=== PATIENT | female | born 1980 | race Caucasian/White ===

== ENCOUNTER 2018-08-19 19:00 | Emergency (ER) | payer BC ==
--- NOTE | 2018-08-19 19:46 | PDOC ---
History of Present Illness - General Chief Complaint: Syncope/Near Syncope Stated Complaint: SYNCOPE Time Seen by Provider: 08/19/18 19:25 History Source: Patient Exam Limitations: No Limitations - History of Present Illness Initial Comments: 08/19/18 20:43 38 yo F with no past medical history presents to the emergency department s/p syncopal event today while at urgent care at approximately 6 pm. Per the patient , she states she was at for evaluation of her N/V/D with concurrent weakness and dehydration. While walking out of the bathroom, she felt weak, had a witnessed LOC event without head trauma, awoke "20 seconds later" while laying down. Antecedent to the event, the patient denies the following symptoms: fever , chills, visual changes, lightheadedness, chest pain palpitations, SOB, and ears/nose/throat pain. Currently, the patient's sole symptomatic complaint is dehydration. Denies the following: fever, chills, abdominal pain, SOB, chest pain, dysuria, hematuria, diarrhea, hematuria, hematochezia, and leg pain/ swelling. No hx of recent travels, hx of PE/DVT, and blood clotting issues. Shx: None Allergies: NKDA Social: Denies tobacco, alcohol, and substance abuse. Past History - Past Medical History Allergies/Adverse Reactions: Allergies Allergy/AdvReac Type Severity Reaction Status Date / Time No Known Allergies Allergy Verified 08/19/18 21:13 Home Medications: Ambulatory Orders NK [No Known Home Medication] 08/19/18 Review of Systems - Review of Systems Able to Perform ROS?: Yes Is the patient limited Cymro proficient: No Constitutional: No: Chills, Diaphoresis, Fever HEENTM: No: Eye Pain, Ear Pain, Nose Pain, Throat Pain, Mouth Pain Respiratory: No: Cough, Shortness of Breath Cardiac (ROS): Yes: Syncope. No: Chest Pain, Lightheadedness, Palpitations, Chest Tightness ABD/GI: Yes: Nausea. No: Constipated, Diarrhea, Rectal Bleeding, Vomiting, Tarry Stools : No: Burning, Dysuria, Hematuria Musculoskeletal: No: Back Pain, Joint Pain, Neck Pain Integumentary: No: Bruising, Erythema, Rash Neurological: No: Headache, Numbness, Tingling, Tremors, Dizziness Psychiatric: No: Change in Appetite Endocrine: No: Unexplained Weight Gain Hematologic/Lymphatic: No: Anemia *Physical Exam - Physical Exam General Appearance: Yes: Nourished, Appropriately Dressed. No: Apparent Distress, Intoxicated HEENT: positive: EOMI, BRENDA, Normal Voice, Symmetrical, Pharynx Normal, Hearing Grossly Normal, Other (atrumatic head). negative: Pale Conjunctivae, Scleral Icterus (R), Scleral Icterus (L), Muffled/Hoarse voice, Pharyngeal Erythema, Tonsillar Exudate, Tonsillar Erythema, Sinus Tenderness, Excessive drooling Neck: positive: Trachea midline, Supple. negative: Tender, Lymphadenopathy (R) , Lymphadenopathy (L), Tender lateral, Tender midline Respiratory/Chest: positive: Lungs Clear, Normal Breath Sounds. negative: Chest Tender, Respiratory Distress, Accessory Muscle Use, Crackles, Rales, Rhonchi, Stridor, Wheezing, Hyperresonant Cardiovascular: positive: Regular Rhythm, Regular Rate, S1, S2. negative: Systolic Murmur Gastrointestinal/Abdominal: positive: Normal Bowel Sounds, Flat, Soft. negative : Tender, Guarding, Rebound, Tenderness Lymphatic: negative: Adenopathy Musculoskeletal: positive: Normal Inspection. negative: CVA Tenderness, Vertebral Tenderness Extremity: positive: Normal Capillary Refill, Normal Inspection, Normal Range of Motion. negative: Tender, Swelling, Calf Tenderness Integumentary: positive: Normal Color, Dry, Warm. 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 negative: Facial Droop, Sensory Deficit ED Treatment Course - LABORATORY CBC & Chemistry Diagram: 08/19/18 20:55 08/19/18 20:55 Medical Decision Making - Medical Decision Making 38 yo F with no past medical history presents to the emergency department s/p syncopal event today while at urgent care at approximately 6 pm. Initial vitals: Initial Vital Signs Temp Pulse Resp BP Pulse Ox 98.7 F 87 18 105/74 100 08/19/18 19:00 08/19/18 19:00 08/19/18 19:00 08/19/18 19:00 08/19/18 19:00 Work up: ddx: syncope (etiology infectious vs metabolic vs cardiogenic vs electrolyte disturbance vs hypovolemia) Laboratory Tests 08/19/18 08/19/18 08/19/18 20:46 20:55 20:55 WBC 9.1 RBC 4.18 Hgb 13.4 Hct 38.2 MCV 91.5 MCH 32.0 MCHC 35.0 RDW 12.7 Plt Count 169 MPV 8.0 Absolute Neuts (auto) 8.1 H Neutrophils % 88.4 H Lymphocytes % 3.7 L Monocytes % 6.2 Eosinophils % 1.5 Basophils % 0.2 Nucleated RBC % 0 Sodium 138 Potassium 3.8 Chloride 107 Carbon Dioxide 23 Anion Gap 8 BUN 11 Creatinine 0.9 Creat Clearance w eGFR > 60 Random Glucose 88 Calcium 8.1 L Total Bilirubin 0.7 AST 16 ALT 30 Alkaline Phosphatase 62 Creatine Kinase 82 Troponin I < 0.02 Total Protein 6.4 Albumin 3.4 Urine Color Straw Urine Appearance Clear Urine pH 5.0 Ur Specific Taylor 1.008 L Urine Protein Negative Urine Glucose (UA) Negative Urine Ketones Negative Urine Blood Negative Urine Nitrite Negative Urine Bilirubin Negative Urine Urobilinogen Negative Ur Leukocyte Esterase Negative Urine HCG, Qual Negative UA was negative. urine was negative. labs within normal limits. troponin negative for elevation. EKG shows NSR without ST elevations or depressions. after receiving 2 L of IVF, zofran, and acetaminophen with significant improvement in symptoms. she was given return precautions and stated she will follow up with her PMD within 1 week after discharge. Dispo: Discharge *DC/Admit/Observation/Transfer Diagnosis at time of Disposition: Syncope Qualifiers: Syncope type: unspecified Qualified Code(s): R55 - Syncope and collapse - Discharge Dispostion Disposition: HOME Decision to Admit order: No - Referrals Referrals: Jesus Vega [Primary Care Provider] - - Patient Instructions Printed Discharge Instructions: DI for Syncope in Adults (Fainting) Additional Instructions: you were seen in the emergency department for the evaluation of your syncope. your labs were within normal limits. please follow up with your primary medical doctor within 1 week after discharge for follow up care and management. please return to the emergency department if you have worsening symptoms or new concerning symptoms such as fever, loss of consciousness, palpitations, and chest pain. thank you. we may call you with positive results for your urine analysis. - Post Discharge Activity Forms/Work/School Notes: Back to Work
[2018-08-19] MEDS ORDERED: ONDANSETRON 4 MG/2 ML VIAL IVPUSH ONE (20:40)
[2018-08-19] MEDS ORDERED: SODIUM CHLORIDE 1,000 ML IV STA (20:40)
[2018-08-19] MEDS ORDERED: ACETAMINOPHEN 1000 MG/100 ML VIAL (NON FORMULARY) IVPB ONE (20:40)
--- NOTE | 2018-08-19 20:40 | PDOC ---
Attending Attestation - HPI HPI: 08/19/18 20:41 38 YOF with no significant past medical history, who presents to the ED s/p syncope. Patient was seen at urgent care earlier today for nausea, vomiting, and diarrhea at which time she had an episode of syncope lasting between 20sec- 5min. NKDA - Physicial Exam PE: 08/19/18 20:46 GENERAL: Well-appearing, well-nourished. No apparent distress. HEENT: Normocephalic, atraumatic. PERRL, EOM intact. CARDIOVASCULAR: Normal S1, S2. Regular rate and rhythm. PULMONARY: Clear to auscultation bilaterally. ABDOMEN: Soft, non-distended. No rebound or guarding. EXTREMITIES: Normal ROM in all four extremities. No gross deformities. SKIN: Warm, dry. No rash NEUROLOGICAL: No focal neurological deficits. 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 <Urbano Charles - Last Filed: 08/19/18 21:07>
[2018-08-19 21:05] LABS: BASO % 0.2 % (0-2.0); EOS % 1.5 % (0-4.5); HEMATOCRIT 38.2 % (32.4-45.2); HEMOGLOBIN 13.4 GM/dL (10.7-15.3); LYMPH % 3.7 % (8-40); MEAN CELL VOLUME 91.5 fl (80-96); MONO % 6.2 % (3.8-10.2); NEUT % 88.4 % (42.8-82.8); PLATELET COUNT 169 K/MM3 (134-434); RBC 4.18 M/mm3 (3.60-5.2); RDW 12.7 % (11.6-15.6); WHITE BLOOD COUNT 9.1 K/mm3 (4.0-10.0)
[2018-08-19 21:13] VITALS: BMI 25.8
[2018-08-19 21:59] LABS: ALBUMIN 3.4 g/dl (3.4-5.0); ALK PHOS 62 U/L (45-117); ANION GAP 8 MMOL/L (8-16); BILIRUBIN,TOTAL 0.7 mg/dL (0.2-1); BLOOD UREA NITROGEN 11 mg/dL (7-18); CALCIUM 8.1 mg/dL (8.5-10.1); CHLORIDE 107 mmol/L (98-107); CO2 23 mmol/L (21-32); CREATININE 0.9 mg/dL (0.55-1.3); GLUCOSE,RANDOM 88 mg/dL (74-106); POTASSIUM 3.8 mmol/L (3.5-5.1); SGOT/AST 16 U/L (15-37); SGPT/ALT 30 U/L (13-61); SODIUM 138 mmol/L (136-145); TOT PROT 6.4 g/dl (6.4-8.2)
[2018-08-19 22:28] LABS: URINE APPEARANCE CLEAR; URINE BILIRUBIN NEGATIVE (<2.0 mg/dL); URINE COLOR STRAW; URINE GLUCOSE (UA) NEGATIVE (NEGATIVE); URINE KETONE NEGATIVE (NEGATIVE); URINE LEUK ESTERASE NEGATIVE (NEGATIVE); URINE NITRITE NEGATIVE (NEGATIVE); URINE PROTEIN NEGATIVE (NEGATIVE); URINE UROBILINOGEN NEGATIVE mg/dL (0.2-1.0)
[2018-08-19 22:30] LABS: HCG,QUALITATIVE URINE Negative
[2018-08-20 00:01] VITALS: BP 120/64; PULSE 72; TEMP 98.2
--- NOTE | 2018-08-20 13:34 | EKG ---
Test Reason : Blood Pressure : / mmHG Vent. Rate : 082 BPM Atrial Rate : 082 BPM P-R Int : 146 ms QRS Dur : 098 ms QT Int : 406 ms P-R-T Axes : 029 062 035 degrees QTc Int : 474 ms POOR DATA QUALITY, INTERPRETATION MAY BE ADVERSELY AFFECTED NORMAL SINUS RHYTHM CANNOT RULE OUT ANTERIOR INFARCT , AGE UNDETERMINED ABNORMAL ECG NO PREVIOUS ECGS AVAILABLE Confirmed by MD MANN, MORGAN ([id number]) on 08/20/2018 1:34:16 PM Referred By: Confirmed By:MORGAN DARNELL MD
== END 2018-08-19 23:27 | disposition home or self-care (01) ==
LOC: JER 19:00
PROC: 3E033GC Introduction of Other Therapeutic Substance into Peripheral Vein, Percutaneous Approach (ICD-10-PCS; principal; 2018-08-19)
PROC: 3E033NZ Introduction of Analgesics, Hypnotics, Sedatives into Peripheral Vein, Percutaneous Approach (ICD-10-PCS; 2018-08-19)
DX: R55 Syncope and collapse (principal)
CPT/HCPCS: 36415; 80053; 81003; 82550; 84484; 84703; 85025; 87086; 93005; 93010; 99284-25; J0131; J7030